=== PATIENT | female | born 1995 | race Caucasian/White ===

== ENCOUNTER → 2021-01-26 | Outpatient (CLI) | payer OTHER ==
--- NOTE | 2021-01-26 14:17 | PFTRPT ---
Height: 63.00 Inches Weight: 155.00 Lbs BSA: 1.74 Diagnosis: DYSPNEA DATE: 01/26/2021 ORDERING PHYSICIAN: Endy Rice Pre and post bronchodilator studies have excellent technical quality. Forced vital capacity is normal. FEV1 is in proportion. Obstructive index is therefore normal. Expiratory limit of the flow-volume loop is normal. No significant bronchodilator response is identified. Total lung capacity is normal. Residual volume borderline elevated. Diffusing capacity is normal. No hemoglobin available for correction. Airway resistance and conductance are normal. IMPRESSION: Essentially normal study. MTDD
== END ==
LOC: M CARPUL 13:40 → EDSEX 14:00
PROVIDERS: ATTEND Physician Assistant
DX: R06.00 Dyspnea, unspecified (principal); Z86.16 Personal history of COVID-19